=== PATIENT | female | born 1990 | race African-American/Black ===

== ENCOUNTER 2021-02-03 20:01 | Emergency (ER) | payer OTHER, SELFPAY ==
[2021-02-03] VITALS (9 sets, daily range): BP systolic 101–122; BP diastolic 57–71; PULSE 61–83; RESP 13–23; TEMP 36.4; O2SAT 100; BMI 36.3
[2021-02-03 22:45] LABS: Add Manual Diff / Slide Review NO; Basophils Absolute Auto 100 /uL (0-100); Basophils Percent Auto 1.1 % (0-2); Eosinophils Absolute Auto 100 /uL (0-450); Eosinophils Percent Auto 0.8 % (2-4); Hematocrit 38.3 % (36-46); Hemoglobin 12.9 g/dL (12.0-16.0); Lymphocytes Absolute Auto 1800 /uL (1100-4500); Lymphocytes Percent Auto 22.1 % (25-40); Mean Corpuscular HGB Conc 33.7 % (30-36); Mean Corpuscular Hemoglobin 29.8 PG (26-34); Mean Corpuscular Volume 88.5 fL (80-100); Monocytes Absolute Auto 400 /uL (0-900); Monocytes Percent Auto 4.4 % (3-14); Neutrophils Absolute Auto 5900 /uL (1500-7000); Neutrophils Percent Auto 71.6 % (50-75); Platelet Count 177 X10^3/uL (150-400); Red Blood Cell Count 4.33 X10^6/uL (4.0-5.2); Red Cell Distribution Width 13.9 % (11.6-14.8); White Blood Cell Count 8.2 X10^3/uL (4.5-11.0)
[2021-02-03] MEDS: PROPRANOLOL 10 MG TABLET 20 MG PO (22:47)
[2021-02-03 22:51] LABS: Alanine Aminotransferase 13 IU/L (<35); Albumin 4.1 g/dL (3.5-5.0); Albumin Globulin Ratio 1.2 (1.0-2.8); Alkaline Phosphatase 44 U/L (38-126); Aspartate Aminotransferase 19 IU/L (14-36); BUN Creatinine Ratio 10.4 (6-22); Bilirubin Total 0.4 mg/dL (0.2-1.3); Blood Urea Nitrogen 10 mg/dL (7-17); Calcium 9.5 mg/dL (8.4-10.2); Carbon Dioxide 29 mmol/L (22-32); Chloride 106 mmol/L (98-107); Estimated Glomerular Filt Rate > 60.0 mL/min (>60); Globulin 3.5 g/dL (1.7-4.1); Glucose 135 mg/dL (70-100); HEMOLYSIS < 15 (0-50); Magnesium 1.7 mg/dL (1.6-2.3); Sodium 141 mmol/L (137-145); Total Protein 7.6 g/dL (6.3-8.2)
[2021-02-03 23:26] LABS: Thyroid Stimulating Hormone 1.39 uIU/mL (0.47-4.68)
[2021-02-04] VITALS: BP 108/57; PULSE 72; RESP 19
[2021-02-04 00:15] VITALS: BP 111/62; PULSE 66; RESP 21
--- NOTE | 2021-02-04 00:29 | ED.ARRPALP ---
HPI - Arrhythmia/Palpitations General Chief Complaint: Arrhythmia/Palpitations Stated Complaint: heart palpitations Time Seen by Provider: 02/03/21 21:52 Source: patient Mode of arrival: Ambulatory Limitations: no limitations History of Present Illness HPI narrative: 30-year-old woman with no significant medical history presents with palpitations that have been increasingly irritating for the last 3 days. She describes them as notable but not painful nor associated with dyspnea, orthopnea or pain. She is not dizzy, nauseated no vomiting no abdominal pain and no diarrhea. She has not had any increased lower extremity edema. She denies caffeine use and denies any type of stimulant use whether that is [id number] or recreational. She has had these episodes intermittently in the past and they typically have resolved. Related Data Previous Rx's Medication Instructions Recorded propranolol 20 mg tablet 20 mg PO BID PRN #20 tab 02/04/21 Allergies Allergy/AdvReac Type Severity Reaction Status Date / Time No Known Drug Allergies Allergy Unverified 01/19/21 15:45 Review of Systems Review of Systems Narrative: Remainder of complete review of systems is otherwise unremarkable except for that included in the HPI. Patient History Medical History History of PCOS Obesity (BMI 30-39.9) Social History Smoking Status: Former smoker Smoking Status: Former smoker alcohol intake frequency: 0-2 drinks per day Substance Use Type: marijuana Exam Narrative Exam Narrative: General: Healthy appearing, in no acute distress. Able to give a complete and coherent history. Well-nourished well-developed HEENT: Moist mucous membranes, normal sclera with reactive pupils, Neck: No JVD, supple Respiratory: Lungs are clear to auscultation, no wheezing no rales no rhonchi. Full and symmetrical air movement Cardiac: Regular rate and rhythm no murmurs no bruits Abdomen: Soft, nontender, good bowel tones, no flank pain Skin: Warm and dry, no rashes Neurologic: Grossly neurologically intact with no obvious asymmetries or abnormalities Extremities: No trauma, well perfused Psych: Cooperative, appropriate insight and affect Initial Vital Signs Initial Vital Signs: Vital Signs Temperature 97.5 F L 02/03/21 20:22 Pulse Rate 71 02/03/21 20:22 Respiratory Rate 16 02/03/21 20:22 Blood Pressure 122/71 02/03/21 20:22 Pulse Oximetry 100 02/03/21 20:22 Course Orders Ordered: ED Orders 02/03/21 22:35 Complete Blood Count AUTO DIFF Stat Comprehensive Metabolic Panel Stat Magnesium Stat Thyroid Stimulating Hormone Stat Discontinued Medications Propranolol HCl (Propranolol 10 Mg Tablet) 20 mg PO NOW ONE Stop: 02/03/21 22:18 Last Admin: 02/03/21 22:47 Dose: 20 mg Documented by: ATAYLOR Vital Signs Vital signs: Vital Signs - 8 hr 02/03/21 20:22 02/03/21 21:59 02/03/21 22:03 Temperature 97.5 F L Pulse Rate 71 83 61 Respiratory Rate 16 13 19 Blood Pressure 122/71 Pulse Oximetry 100 02/03/21 22:30 02/03/21 22:46 02/03/21 23:00 Temperature Pulse Rate 69 62 64 Respiratory Rate 23 19 19 Blood Pressure 111/58 L 114/61 Pulse Oximetry 02/03/21 23:15 02/03/21 23:30 02/03/21 23:45 Temperature Pulse Rate 67 69 64 Respiratory Rate 20 19 19 Blood Pressure 106/57 L 101/57 L 109/60 Pulse Oximetry MDM - Arrhythmia/Palpitations Lab Data Result diagrams: 02/03/21 22:35 02/03/21 22:35 Labs: Lab Results 02/03/21 02/03/21 02/03/21 Range/Units 22:35 22:35 22:35 WBC 8.2 (4.5-11.0) X10^3/uL RBC 4.33 (4.0-5.2) X10^6/uL Hgb 12.9 (12.0-16.0) g/dL Hct 38.3 (36-46) % MCV 88.5 (80-100) fL MCH 29.8 (26-34) PG MCHC 33.7 (30-36) % RDW 13.9 (11.6-14.8) % Plt Count 177 (150-400) X10^3/uL Neut % (Auto) 71.6 (50-75) % Lymph % (Auto) 22.1 L (25-40) % Gulf % (Auto) 4.4 (3-14) % Eos % (Auto) 0.8 L (2-4) % Baso % (Auto) 1.1 (0-2) % Neut # (Auto) 5900 (9268-1244) /uL Lymph # (Auto) 1800 (3884-8625) /uL [place] # (Auto) 400 (0-900) /uL Eos # (Auto) 100 (0-450) /uL Baso # (Auto) 100 (0-100) /uL Sodium 141 (137-145) mmol/L Potassium 4.0 (3.4-5.1) mmol/L Chloride 106 (98-107) mmol/L Carbon Dioxide 29 (22-32) mmol/L BUN 10 (7-17) mg/dL Creatinine 0.96 (0.52-1.04) mg/dL Estimated GFR > 60.0 (>60) mL/min BUN/Creatinine Ratio 10.4 (6-22) Glucose 135 H (70-100) mg/dL Calcium 9.5 (8.4-10.2) mg/dL Magnesium 1.7 (1.6-2.3) mg/dL Total Bilirubin 0.4 (0.2-1.3) mg/dL AST 19 (14-36) IU/L ALT 13 (<35) IU/L Alkaline Phosphatase 44 (38-126) U/L Total Protein 7.6 (6.3-8.2) g/dL Albumin 4.1 (3.5-5.0) g/dL Globulin 3.5 (1.7-4.1) g/dL Albumin/Globulin Ratio 1.2 (1.0-2.8) TSH 1.39 (0.47-4.68) uIU/mL ECG Data Interpretation: Sinus rhythm with sinus arrhythmia occasional PVC Normal axis, normal intervals No acute ischemic changes MDM Narrative Medical decision making narrative: Patient presents with symptomatic palpitations and completely unremarkable workup. She is given 20 mg of propranolol with complete resolution of her symptoms. At this point there is no life-threatening abnormality to explain her symptoms and she is safe for home discharge Discharge Plan Departure Patient Disposition: Home Clinical Impression: Ventricular premature beats Instructions: Premature Ventricular Beats Activity Restrictions/Additional Instructions: Thank you for coming in Your workup was very reassuring. There is no evidence for infection, heart attack, thyroid abnormalities, kidney or liver problems and your electrolytes are normal. If you are finding the palpitations are so symptomatic that your having difficulty ignoring them, you can use 20 mg of propranolol twice a day. If you find that you do not need this you do not need to take it. [place] and [place]. I encourage you to follow-up with her primary care physician. I hope you feel better Prescriptions: New propranolol 20 mg tablet 20 mg PO BID PRN (Reason: palpitations) Qty: 20 RF: 0 Referrals: Brianna Hernandez ARNP [Primary Care Provider] -
[2021-02-04 00:30] VITALS: BP 108/56; PULSE 66; RESP 18
== END 2021-02-04 01:10 | disposition home or self-care (01) ==
PROVIDERS: Emergency Provider Emergency Medicine; PCP Nurse Practitioner
DX: I49.3 Ventricular premature depolarization (principal); R11.0 Nausea
CPT/HCPCS: 36415; 80053; 83735; 84443; 85025; 99283